=== PATIENT | female | born 1970 | race Caucasian/White ===

== ENCOUNTER 2016-11-11 09:07 | Day surgery (SDC) | payer BC ==
[~2016-11-11 09:07] MED LIST: Buffered Lidocaine 0.9% SYRIN* 5 ML/SYR SYRINGE INTRADERM ONE; Dexamethasone IV* 4 MG/ML 1 ML (4 MG) IV SLOW PU ONE; Famotidine IV* 10 MG/ML 2 ML (20 mg) IV ONE
[2016-11-11] MEDS ORDERED: Famotidine IV* 10 MG/ML 2 ML (20 mg) ONE (09:33)
[2016-11-11] MEDS ORDERED: Dexamethasone IV* 4 MG/ML 1 ML (4 MG) ONE (09:33)
[2016-11-11] MEDS ORDERED: Buffered Lidocaine 0.9% SYRIN* 5 ML/SYR SYRINGE ONE (09:35)
[2016-11-11] MEDS ORDERED: Bupivacaine 0.25% SDV* 30 ML ONE (10:16)
[2016-11-11] MEDS ORDERED: Midazolam* 1 MG/ML 2 ML VIAL (2 MG) ONE ×2 (10:18→10:42)
[2016-11-11] MEDS ORDERED: fentaNYL* 50 MCG/ML 2 ML VIAL (100 MCG VIAL) ONE ×2 (10:18→10:58)
[2016-11-11] MEDS ORDERED: fentaNYL* 50 MCG/ML 2 ML VIAL (100 MCG VIAL) IV PRN (10:28)
[2016-11-11] MEDS ORDERED: oxyCODONE/Acetamin 5/325 MG* TAB PO PRN (10:28)
[2016-11-11] MEDS ORDERED: PROCHLORPERAZINE INJ 5 MG/ML 2 ML VIAL IV PRN (10:28)
[2016-11-11] MEDS ORDERED: Ketorolac INJ* 30 MG/ML 1 ML VIAL IV PRN (10:28)
[2016-11-11] MEDS ORDERED: Ondansetron INJ* 2 MG/ML VIAL IV PRN (10:28)
[2016-11-11] MEDS ORDERED: HYDROcodone/ACETAMIN 5-325 MG* 1 TAB PO PRN (10:28)
[2016-11-11] MEDS ORDERED: Lidocaine 2% PF * 5 ML VIAL ONE (10:37)
[2016-11-11] MEDS ORDERED: Propofol* 10 MG/ML 20 ML BTL IV PUSH ONE (10:37)
[2016-11-11] MEDS ORDERED: Ketorolac INJ* 30 MG/ML 1 ML VIAL ONE (11:23)
[2016-11-11 11:47] VITALS: BP 148/91
--- NOTE | 2016-11-11 15:50 | OP ---
DATE OF OPERATION: 11/11/16 - [facility] DATE OF : 70 SURGEON: Mayco Medina MD MD PHYSICIAN DERMATOLOGIST: RETA Al ANESTHESIOLOGIST: Dr. Mike Reyes. ANESTHESIA: Local MAC. PRE-OP DIAGNOSIS: Left wrist De Quervain's disease. POST-OP DIAGNOSIS: Left wrist De Quervain's disease. OPERATIVE PROCEDURE: Left De Quervain's release. ESTIMATED BLOOD LOSS: 2 mL. COMPLICATIONS: None. FINDINGS: As expected. INDICATIONS: Taya is a 46-year-old female in whom I had given a steroid injection for De Quervain's disease of the left wrist. She got much much better ; however, the pain came back. We had talked about risks and benefits and she wanted to proceed with surgery. DESCRIPTION OF PROCEDURE: Taya was seen in the preoperative holding area. The correct site, side, and procedure were identified. We came back to the operating room where she got some anesthesia and then I infiltrated the operative area with 0.25% plain Marcaine. The arm was then prepped and draped in the usual fashion, formal time-out was performed. I began by making a transverse 2 cm incision just proximal to the radial styloid. Dissection was carried down bluntly and full-thickness flaps were raised right off of the tendon sheath and the radial sensory nerve was protected throughout the entirety of the case. Once the tendon sheath was visualized, I went ahead and took the 15 blade and on the dorsal aspect of the tendon sheath, I went ahead an released the sheath in line with the first dorsal compartment tendons. The release was carried out proximally and distally under direct visualization with the tenotomy scissors taking care to preserve the traversing sensory nerves. Once I had opened up the sheath, it was obvious that there was a large septum dividing the compartments. The septum was released and the remainder of the first dorsal compartment tendons were visualized. Once I had fully released the septum, there was no more compression on the tendons proximally or distally. I therefore went ahead and irrigated out the wound. The skin was closed with 4-0 nylon suture. The tourniquet was deflated. I had exsanguinated the arm and inflated the tourniquet to 250 mmHg prior to making skin incision. Fingers pinked up immediately. The wound was dressed with Xeroform, 4 x 4, sterile Webril, and an Travis wrap. She was taken to the recovery room in stable condition. [id number]/[facility] #: [id number] JAYESH
== END 2016-11-11 12:05 | disposition home or self-care (01) ==
LOC: OREAST 09:07
PROVIDERS: ATTEND Orthopaedic Surgery Hand Surgery
DX: M65.4 Radial styloid tenosynovitis [de Quervain] (principal); I10 Essential (primary) hypertension
CPT/HCPCS: J1100; J1885; J2250; J2704; J3010

== ENCOUNTER 2017-02-27 10:06 | Emergency (ER) | payer BC ==
[2017-02-27 11:07] VITALS: BP 159/99
--- NOTE | 2017-02-27 11:50 | UC ---
Upper Extremity HPI - HPI Summary HPI Summary: per flexboard operator "BILATERAL HAND PAIN AND SWELLING.HANDS AND THUMBS HAVE BEEN SORE FOR SEVERAL MONTHS. HAD SURGRY ON LEFT WRIST IN NOVEMBER TO RELEASE TENDONS. THIS PAST WEEK SHE HAS FELT RUN DOWN AND ACHEY. USED DICLOFINAC GEL WITH LITTLE RELIEF. " - History of Current Complaint Chief Complaint: UCUpperExtremity Stated Complaint: BILATERAL HAND NUMBNESS/SWELLING Time Seen by Provider: 02/27/17 11:48 - Allergies/Home Medications Allergies/Adverse Reactions: Allergies Allergy/AdvReac Type Severity Reaction Status Date / Time No Known Allergies Allergy Verified 02/27/17 10:57 Home Medications: Home Medications Diclofenac 1% GEL (NF) [Voltaren 1% GEL (NF)] 1 applic TOPICAL PRN 02/27/17 [ History] PMH/Surg Hx/FS Hx/Imm Hx - Surgical History Surgical History: Yes Surgery Procedure, Year, and Place[place] LEFT WRIST SURGERY TEDON RELEASE - Social History Alcohol Use: None Substance Use Type: None Smoking Status (MU): Never Smoked Tobacco Have You Smoked in the Last Year: No Physical Exam Vital Signs: Initial Vital Signs Temp 99 F 02/27/17 10:58 Pulse 88 02/27/17 10:58 Resp 16 02/27/17 10:58 BP 159/99 02/27/17 10:58 Pulse Ox 100 02/27/17 10:58
--- NOTE | 2017-02-27 12:22 | UC ---
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 HAD SURGRY ON LEFT WRIST IN NOVEMBER TO RELEASE TENDONS. THIS PAST WEEK SHE HAS FELT RUN DOWN AND ACHEY. USED DICLOFINAC GEL WITH LITTLE RELIEF. " Pt reports that she has been eating a high sodium diet of fast food and diet soda. Pt does not follow regularly with her PCP has not had a PE in 2 or more years. - History Of Current Complaint Chief Complaint: UCUpperExtremity Stated Complaint: BILATERAL HAND NUMBNESS/SWELLING Time Seen by Provider: 02/27/17 11:48 Hx Obtained From: Patient Hx From Patient Unobtainable Due To: Dementia ?: No Onset/Duration: Gradual Onset, Lasting Days Severity Initially: Mild Severity Currently: Moderate Character Of Pain: Dull, Aching, Stiffness, Burning Aggravating Factor(s): Movement, Flexion, Extension Alleviating Factor(s): Rest Associated Signs And Symptoms: Positive: Swelling, Numbness/Tingling, Other - swelling - Allergies/Home Medications Allergies/Adverse Reactions: Allergies Allergy/AdvReac Type Severity Reaction Status Date / Time No Known Allergies Allergy Verified 02/27/17 10:57 Home Medications: Home Medications Diclofenac 1% GEL (NF) [Voltaren 1% GEL (NF)] 1 applic TOPICAL PRN 02/27/17 [ History] PMH/Surg Hx/FS Hx/Imm Hx Previously Healthy: Yes - Surgical History Surgical History: Yes Surgery Procedure, Year, and Place: [place] LAPAROTOM[place]. LEFT WRIST SURGERY [place] RELEASE - Family History Known Family History: Positive: Cardiac Disease - Social History Occupation: Employed Full-time Lives: With Family Alcohol Use: None Substance Use Type: None Smoking Status (MU): Never Smoked Tobacco Have You Smoked in the Last Year: No Review of Systems Constitutional: Negative Skin: Negative Eyes: Negative ENT: Negative Respiratory: Negative Cardiovascular: Negative Gastrointestinal: Negative Genitourinary: Negative Motor: Weakness Neurovascular: Other - pins and needle feeling Musculoskeletal: Arthralgia - bialteral hands, Edema - hands,, Myalgia - bialteral hands Neurological: Other - pins and needles feeling bilateral hands Psychological: Negative Is Patient Immunocompromised?: No All Other Systems Reviewed And Are Negative: Yes Physical Exam Triage Information Reviewed: Yes Appearance: Well-Appearing Vital Signs: Initial Vital Signs Temp 99 F 02/27/17 10:58 Pulse 88 02/27/17 10:58 Resp 16 02/27/17 10:58 BP 159/99 02/27/17 10:58 Pulse Ox 100 02/27/17 10:58 Vital Signs Reviewed: Yes Eye Exam: Normal ENT Exam: Normal Dental Exam: Normal Neck exam: Normal Respiratory Exam: Normal Cardiovascular Exam: Normal Musculoskeletal Exam: Other Musculoskeletal: Positive: Strength Intact, Edema @ - trace edema bilateral lower extremity, trace hands Neurological Exam: Normal Psychological Exam: Normal Skin Exam: Normal Hand/Wrist Course/Dx - Course Course Of Treatment: I spoke to the patient about her diet, being high sodium and the her elevated BP. I discussed with her the need to follow up with her PCP and Orthopedic provider. Pt verbalized understanding and agreed to plan of care. - Differential Dx/Diagnosis Differential Diagnosis/HQI/PQRI: Tendonitis, Other - peripheral edema, elevated bp, high sodium diet Provider Diagnoses: peripheral edema. tendonitis bilateral upper extremities Discharge - Discharge Plan Condition: Stable Disposition: HOME Patient Education Materials: Low Sodium Diet (ED), Arthralgia (ED), Edema (ED) Referrals: Mayco Medina MD [Medical Doctor] - As Soon As Possible Edwin Cox MD [Primary Care Provider] - As Soon As Possible
== END 2017-02-27 12:29 | disposition home or self-care (01) ==
LOC: UCCORT 10:06
DX: R60.9 Edema, unspecified (principal); M77.9 Enthesopathy, unspecified
CPT/HCPCS: 99212; G0463